=== PATIENT | female | born 1985 | race Caucasian/White ===

== ENCOUNTER 2018-09-17 11:52 | Emergency (ER) | payer MEDICAID, OTHER ==
[~2018-09-17] VITALS: Ht 167.6 cm; Wt 59.0 kg
[2018-09-17] MEDS: SODIUM CHLORIDE 0.9% 1,000 ML IV ONE (13:00)
[2018-09-17 13:30] LABS: Basophils # (auto) 0 uL; Basophils % (auto) 0.2 % (0.0-2.0); Eosinophils # (auto) 0 uL; Eosinophils % (auto) 0.2 % (0.0-7.0); Hematocrit 28.5 % (36.0-46.0); Hemoglobin 9.4 g/dL (12.2-16.2); Lymphocytes # (auto) 0.8 uL; Lymphocytes % (auto) 11.3 % (10.0-50.0); Mean Corpuscular Hemoglobin 28.3 pg (28.0-32.0); Mean Corpuscular Hgb Conc. 32.8 g/dL (32.0-36.0); Mean Corpuscular Volume 86.3 fL (80.0-100.0); Monocytes # (auto) 0.4 uL; Monocytes % (auto) 5.8 % (0.0-12.0); Neutrophils # (auto) 5.6 uL; Neutrophils % (auto) 82.5 % (37.0-80.0); Platelet Count (auto) 207 10^3/uL (140-450); Red Cell Distribution Width 15.2 % (11.8-14.3); White Blood Cell 6.8 10^3/uL (4.4-10.8)
[2018-09-17 13:46] LABS: Albumin 2.6 g/dL (3.4-5.0); BUN/Creatinine Ratio 15.7; Calcium 8.1 mg/dL (8.5-10.1)
[2018-09-17 13:55] LABS: Bilirubin, Total 0.2 mg/dL (0.2-1.0); Total Protein 6.7 g/dL (6.4-8.2)
[2018-09-17 15:42] VITALS: BP 110/60
== END 2018-09-17 15:46 | disposition home or self-care (01) ==
LOC: ER 12:01
DX: O99.282 Endocrine, nutritional and metabolic diseases complicating pregnancy, second trimester (principal); O25.12 Malnutrition in pregnancy, second trimester; E86.0 Dehydration; Z3A.23 23 weeks gestation of pregnancy
CPT/HCPCS: 36415; 80053; 82962; 84702; 85025; 93005; 94761; 96360; 96361; 99284; J7030

== ENCOUNTER 2018-12-02 04:35 | Observation (INO) | payer MEDICAID | END 2018-12-02 05:20 | disposition left against medical advice (07) | DRG 566 | LOC: LDRP 04:35 | PROVIDERS: ADMIT Specialist; ATTEND Specialist | DX: O62.9 Abnormality of forces of labor, unspecified (principal); Z3A.33 33 weeks gestation of pregnancy | CPT/HCPCS: G0378 ==